=== PATIENT | male | born 1995 | race Caucasian/White ===

== ENCOUNTER 2022-11-19 06:26 | Emergency (ER) | payer SELFPAY ==
[~2022-11-19] VITALS: Ht 152.4 cm; Wt 67.6 kg
--- NOTE | 2022-11-19 06:26 | NUR ---
PT NELLA SALVADOR, PREBOOK. TAKEN TO CHAIR
[2022-11-19] MEDS ORDERED: LIDOCAINE 1% 500 MG/ 50 ML VIAL INJ ONE (06:40)
[2022-11-19 06:44] VITALS: BP 136/99
--- NOTE | 2022-11-19 06:49 | NUR ---
PT BIB [facility] C/O LAC RT UPPER EYELID X 30 MIN NO LOC/KO PAIN 0/10.
[2022-11-19 06:51] VITALS: BP 136/99
--- NOTE | 2022-11-19 06:53 | NUR ---
PT TAKEN TO BED 4
[2022-11-19] MEDS ORDERED: LIDOCAINE MPF 1% 5 ML ONE (06:55)
--- NOTE | 2022-11-19 07:01 | NUR ---
Dr. Colvin examining patient.
--- NOTE | 2022-11-19 07:18 | NUR ---
PATIENT BIB [place] [employer]. PATIENT EXAMINED BY DR. TRAN. PATIENT MEDICALLY CLEARED AND RELEASED IN CUSTODY IN STABLE CONDITION. ORIGINAL PRE-BOOK FORM GIVEN TO OFFICER TANIA.
== END 2022-11-19 07:18 ==
LOC: EDSEX 06:26 → MED 06:26
DX: S01.111A Laceration without foreign body of right eyelid and periocular area, initial encounter (principal); V49.88XA Car occupant (driver) (passenger) injured in other specified transport accidents, initial encounter; Y93.89 Activity, other specified; Y92.89 Other specified places as the place of occurrence of the external cause; Y99.8 Other external cause status
CPT/HCPCS: 12011; 99283; J2001